=== PATIENT | female | born 1940 | race Caucasian/White ===

== ENCOUNTER 2023-05-09 19:45 | Inpatient (IN) | payer MEDICARE ==
[~2023-05-09] VITALS: Ht 152.4 cm; Wt 78.7 kg
[2023-05-09] VITALS (13 sets, daily range): BP systolic 98–150; BP diastolic 40–76
[2023-05-09 20:18] LABS: BASO% 0.4 % (0-3); EOS% 1.2 % (0-8); IMMATURE GRANULOCYTES 0.4 % (0.0-5.0); LYMPH% 6.6 % (15-41); MEAN CORPUSCULAR HGB 22.2 pG CALC (26.0-32.0); MEAN CORPUSCULAR HGB CONC 29.1 g/dL CAL (32.0-36.0); MONO% 5.4 % (2-13); NEUT# 19.19 thou/uL (2.00-7.15); RED BLOOD COUNT 4.37 mill/uL (4.20-5.60); RED CELL DISTRI WIDTH 17.5 % (11.5-15.5)
[2023-05-09 20:21] LABS: HEMATOCRIT 33.3 % (37.0-47.0); HEMOGLOBIN 9.7 g/dl (12.0-16.0); MEAN CELL VOLUME 76.2 fL CALC (80.0-100.0)
[2023-05-09 20:32] LABS: ALBUMIN 4.6 g/dL (3.2-5.0); CREATININE 1.1 mg/dL (0.5-1.0); POTASSIUM 4.5 mmol/l (3.5-5.1); TOTAL PROTEIN 7.9 g/dL (6.3-8.2)
[2023-05-09 21:13] LABS: D-DIMER 0.59 mg/L (0.19-0.60)
[2023-05-09 21:14] LABS: INTERNATIONAL NORMALIZED RATIO 1.1 RATIO (0.7-1.3); PROTHROMBIN TIME 10.3 SECONDS (9.0-12.5)
[2023-05-10] VITALS (25 sets, daily range): BP systolic 117–158; BP diastolic 54–74
[2023-05-10] MEDS ORDERED: ATORVASTATIN CA40 MG PO (04:29)
[2023-05-10] MEDS ORDERED: GLUCOTROL XL5 MG PO (04:31)
[2023-05-10] MEDS ORDERED: LEVOTHYROXIN125 MCG PO (04:31)
[2023-05-10] MEDS ORDERED: METFORMIN500 M2 PO (04:33)
[2023-05-10] MEDS ORDERED: ELIQUIS5 MG PO (04:34)
[2023-05-10] MEDS ORDERED: DIOVAN HCT320 MG/25 PO (04:34)
[2023-05-10] MEDS ORDERED: LANTUS100 UNIT SC (04:35)
[2023-05-10] MEDS ORDERED: FENOFIBRATE200 M1 PO (04:39)
[2023-05-10] MEDS ORDERED: CARTIA XT180 MG PO (04:40)
[2023-05-10] MEDS ORDERED: SORINE120 MG PO (04:46)
[2023-05-10 06:48] LABS: MAGNESIUM 1.7 mg/dL (1.6-2.3)
== END 2023-05-10 06:32 | DRG 871 ==
LOC: ED 19:45 → ED-I 22:00 → ED 22:51 → ICU 22:52
PROVIDERS: Emergency Medicine; ADMIT Internal Medicine; ATTEND Internal Medicine
PROC: 5A09357 Assistance with Respiratory Ventilation, Less than 24 Consecutive Hours, Continuous Positive Airway Pressure (ICD-10-PCS; principal; 2023-05-09)
DX: A41.9 Sepsis, unspecified organism (principal); J18.9 Pneumonia, unspecified organism; E87.29 Other acidosis; E11.65 Type 2 diabetes mellitus with hyperglycemia; R09.02 Hypoxemia; I11.0 Hypertensive heart disease with heart failure; I50.9 Heart failure, unspecified; R79.89 Other specified abnormal findings of blood chemistry; I48.91 Unspecified atrial fibrillation; Z79.01 Long term (current) use of anticoagulants; Z88.1 Allergy status to other antibiotic agents; Z88.2 Allergy status to sulfonamides; Z88.7 Allergy status to serum and vaccine; Z20.822 Contact with and (suspected) exposure to COVID-19
CPT/HCPCS: J1644